=== PATIENT | female | born 1985 | race Caucasian/White ===

== ENCOUNTER 2018-04-22 13:05 | Emergency (ER) | payer MEDICAID ==
[~2018-04-22] VITALS: Ht 172.7 cm; Wt 72.9 kg
[~2018-04-22 13:05] MED LIST: CARI250T PO
[2018-04-22 13:56] LABS: BASOPHILS # (AUTO) 0.07 x10^3/uL (0-0.1); BASOPHILS % (AUTO) 1 % (0-1); EOSINOPHILS # (AUTO) 0.07 x10^3/uL (0-0.4); EOSINOPHILS % (AUTO) 1 % (1-7); LYMPHOCYTES # (AUTO) 3.36 x10^3/uL (1-3.4); LYMPHOCYTES % (AUTO) 30 % (22-44); MD NO; MEAN CORPUSCULAR HEMOGLOBIN 29.3 pg (27.0-34.8); MEAN CORPUSCULAR HGB CONC 33.7 g/dL (32.4-35.8); MEAN PLATELET VOLUME 8.3 fL (7.4-10.4); MONOCYTES # (AUTO) 0.38 x10^3/uL (0.2-0.8); MONOCYTES % (AUTO) 3 % (2-9); NEUTROPHILS # (AUTO) 7.26 x10^3/uL (1.8-6.8); NEUTROPHILS % (AUTO) 65 % (42-75); PLATELET COUNT 250 x10^3/uL (130-400); RED CELL DISTRIBUTION WIDTH 14.6 % (9.6-15.2)
[2018-04-22 14:07] LABS: ALBUMIN 2.8 g/dL (3.4-5.0); ANION GAP 2 mmol/L (5-15); CALCIUM 8.1 mg/dL (8.5-10.1); CHLORIDE 112 mmol/L (98-107)
[2018-04-22 14:12] LABS: ALANINE AMINOTRANSFERASE 19 U/L (12-78); ALKALINE PHOSPHATASE 68 U/L (45-117); BILIRUBIN,TOTAL 0.3 mg/dL (0.2-1.0); CREATININE 0.83 mg/dL (0.55-1.02); TOTAL PROTEIN 6.4 g/dL (6.4-8.2)
--- NOTE | 2018-04-22 15:24 | NUR ---
FROM LOBBY TO ROOM
[2018-04-22] MEDS ORDERED: MECLIZINE CHEWABLE 25 MG TAB ONE (15:41)
[2018-04-22] MEDS ORDERED: ONDANSETRON ODT 4 MG ONE (15:41)
[2018-04-22 15:49] VITALS: BP 102/60
[2018-04-22] MEDS ORDERED: MECLIZINE CHEWABLE 25 MG TAB PO ONE (16:00)
[2018-04-22] MEDS ORDERED: ONDANSETRON ODT 4 MG PO ONE (16:00)
== END 2018-04-22 16:30 | disposition home or self-care (01) ==
LOC: ED 16:19
DX: H66.001 Acute suppurative otitis media without spontaneous rupture of ear drum, right ear (principal); H83.01 Labyrinthitis, right ear; F17.200 Nicotine dependence, unspecified, uncomplicated
CPT/HCPCS: 36415; 80053; 84703; 85025; 93005; 99284; Q0162